=== PATIENT | male | born 1960 | race Caucasian/White ===

== ENCOUNTER → 2017-08-16 | Outpatient (CLI) | payer OTHER ==
--- NOTE | 2017-08-16 14:41 | MR ---
EXAMINATION TYPE: MR cspine/lspine wo con DATE OF EXAM: 08/16/2017 COMPARISON: NONE HISTORY: Radiculopathy, cervical/lumbar per order. Tingling in arms and tightness in lower shoulders with pain or weakness in both arms per patient for 6 months. Tingling and numbness in both legs for 2 years per patient. TECHNIQUE: Multiplanar, multisequence imaging of the cervical and lumbar spine are performed without IV contrast. FINDINGS: C-SPINE: FINDINGS: Sagittal images of the cervical spine show the craniocervical junction to appear within nor mal limits. The cervical and upper thoracic spinal cord is normal in course, caliber, and signal. V ertebral alignment is anatomic. The vertebral body and heights are normal. There is mild to moderat e disc space narrowing and anterior spurring C4-C5 through C6-C7 levels with posterior disc herniatio ns effacing anterior thecal sac on sagittal images. The bone marrow signal intensity is within normal limits. Axial images show the C2-C3 level to appear within normal limits. Axial images at C3-C4 level show left paracentral/foraminal disc protrusion effacing anterolateral th ecal sac and causing asymmetric mild to moderate left-sided neural foraminal narrowing. Right-sided n eural foramen is patent. Axial images at C4-C5 level show broad-based posterior disc protrusion effacing anterior thecal sac a nd causing moderate to advanced bilateral neural foraminal narrowing. There is effacement of ventral surface of spinal cord which is mildly flattened. Mild increased signal is difficult to exclude at th is level on axial images but does not reproduce on sagittal images. Axial images at C5-C6 level show broad-based right paracentral disc protrusion effacing anterolateral thecal sac up to ventral surface of spinal cord which is slightly flattened, there is moderate to ad vanced bilateral neural foraminal narrowing at this level identified. Axial images at C6-C7 level show broad-based left paracentral disc protrusion effacing anterior theca l sac up to ventral surface of spinal cord with advanced right and moderate left-sided neural foramin al narrowing seen. Axial images at C7-T1 level shows central disc protrusion mildly effacing anterior thecal sac, bilate ral neural foramina are patent. IMPRESSION: Multilevel degenerative changes in the cervical spine with multilevel significant disc he rniations noted as detailed above. L-SPINE: Distended bladder is partially imaged. Sagittal images of the lumbar spine show vertebral body height s alignment to appear satisfactory. Spine is straightened. The intervertebral discs demonstrate bhupendra l heights and hydration. No large posterior disc herniations are seen on sagittal images. The conus medullaris is normal in position and signal ending superior L1 level. The bone marrow signal intensi ty is within normal limits. Mild anterior spurring L3-L4 level is seen. Axial images show the T12-L1, L1-L2, and L2-L3 levels all to appear within normal limits. Axial images at L3-L4 level show mild to moderate broad disc bulge and mild facet degenerative change s bilaterally but spinal canal is preserved and bilateral neural foramina show mild anterior inferior neural foraminal narrowing, right greater than left. Axial images at L4-L5 level and L5-S1 levels show mild facet arthropathy otherwise are within normal limits. IMPRESSION: Straightening of lumbar spine with some mild multilevel degenerative changes mid to lower lumbar levels most prominent L3-L4 level.
== END | disposition home or self-care (01) ==
LOC: RADMRIMAIN 13:41
PROVIDERS: ATTEND Preventive Medicine Public Health & General Preventive Medicine
DX: M50.11 Cervical disc disorder with radiculopathy, high cervical region (principal); M47.22 Other spondylosis with radiculopathy, cervical region; M47.26 Other spondylosis with radiculopathy, lumbar region
CPT/HCPCS: 72141; 72148